=== PATIENT | male | born 1970 | race Caucasian/White ===

== ENCOUNTER → 2017-02-20 | Outpatient (CLI) | payer BC ==
[~2017-02-20] MED LIST: GABAPENTIN600 MG PO; JARDIANCE PO; LEXAPRO10 MG PO; LISINOPRIL10 MG PO; METFORMIN HCL1000 MG PO; TRULICITY; XARELTO20 MG PO
== END ==
LOC: WCC 10:53
PROVIDERS: ATTEND Internal Medicine Infectious Disease
DX: T86.821 Skin graft (allograft) (autograft) failure (principal); Y83.5 Amputation of limb(s) as the cause of abnormal reaction of the patient, or of later complication, without mention of misadventure at the time of the procedure; E11.621 Type 2 diabetes mellitus with foot ulcer; L97.416 Non-pressure chronic ulcer of right heel and midfoot with bone involvement without evidence of necrosis; B95.2 Enterococcus as the cause of diseases classified elsewhere; B96.5 Pseudomonas (aeruginosa) (mallei) (pseudomallei) as the cause of diseases classified elsewhere; Z01.810 Encounter for preprocedural cardiovascular examination; Z01.811 Encounter for preprocedural respiratory examination; I10 Essential (primary) hypertension

== ENCOUNTER → 2017-03-26 | Outpatient (CLI) | payer BC | LOC: WCC 09:56 | PROVIDERS: ATTEND Internal Medicine Infectious Disease | DX: T86.821 Skin graft (allograft) (autograft) failure (principal); Y83.5 Amputation of limb(s) as the cause of abnormal reaction of the patient, or of later complication, without mention of misadventure at the time of the procedure; E11.621 Type 2 diabetes mellitus with foot ulcer; L97.416 Non-pressure chronic ulcer of right heel and midfoot with bone involvement without evidence of necrosis; B95.2 Enterococcus as the cause of diseases classified elsewhere; B96.5 Pseudomonas (aeruginosa) (mallei) (pseudomallei) as the cause of diseases classified elsewhere; I10 Essential (primary) hypertension; Z01.810 Encounter for preprocedural cardiovascular examination; Z01.811 Encounter for preprocedural respiratory examination ==

== ENCOUNTER → 2017-03-27 | Outpatient (CLI) | payer BC | LOC: WCC 11:58 | PROVIDERS: ATTEND Internal Medicine Infectious Disease | DX: T86.821 Skin graft (allograft) (autograft) failure (principal); Y83.5 Amputation of limb(s) as the cause of abnormal reaction of the patient, or of later complication, without mention of misadventure at the time of the procedure; E11.621 Type 2 diabetes mellitus with foot ulcer; B92 Sequelae of leprosy; B96.5 Pseudomonas (aeruginosa) (mallei) (pseudomallei) as the cause of diseases classified elsewhere; I10 Essential (primary) hypertension; Z01.810 Encounter for preprocedural cardiovascular examination; Z01.811 Encounter for preprocedural respiratory examination; L97.516 Non-pressure chronic ulcer of other part of right foot with bone involvement without evidence of necrosis ==

== ENCOUNTER → 2017-04-01 | Outpatient (CLI) | payer BC | LOC: WCC 08:17 | PROVIDERS: ATTEND Internal Medicine Infectious Disease | DX: T86.821 Skin graft (allograft) (autograft) failure (principal); Y83.5 Amputation of limb(s) as the cause of abnormal reaction of the patient, or of later complication, without mention of misadventure at the time of the procedure; E11.621 Type 2 diabetes mellitus with foot ulcer; B95.2 Enterococcus as the cause of diseases classified elsewhere; B96.5 Pseudomonas (aeruginosa) (mallei) (pseudomallei) as the cause of diseases classified elsewhere; I10 Essential (primary) hypertension; Z01.810 Encounter for preprocedural cardiovascular examination; Z01.811 Encounter for preprocedural respiratory examination; L97.416 Non-pressure chronic ulcer of right heel and midfoot with bone involvement without evidence of necrosis | CPT/HCPCS: 36415; 82948; G0277 ==

== ENCOUNTER → 2017-04-02 | Outpatient (CLI) | payer BC | LOC: WCC 09:53 | PROVIDERS: ATTEND Internal Medicine Infectious Disease | DX: T86.821 Skin graft (allograft) (autograft) failure (principal); E11.621 Type 2 diabetes mellitus with foot ulcer; Y83.5 Amputation of limb(s) as the cause of abnormal reaction of the patient, or of later complication, without mention of misadventure at the time of the procedure; I10 Essential (primary) hypertension; Z01.810 Encounter for preprocedural cardiovascular examination; Z01.811 Encounter for preprocedural respiratory examination; L97.416 Non-pressure chronic ulcer of right heel and midfoot with bone involvement without evidence of necrosis ==

== ENCOUNTER → 2017-04-09 | Outpatient (CLI) | payer BC | LOC: WCC 10:05 | PROVIDERS: ATTEND Family Medicine Adult Medicine | DX: T86.821 Skin graft (allograft) (autograft) failure (principal); Y83.5 Amputation of limb(s) as the cause of abnormal reaction of the patient, or of later complication, without mention of misadventure at the time of the procedure; E11.621 Type 2 diabetes mellitus with foot ulcer; I10 Essential (primary) hypertension; Z01.810 Encounter for preprocedural cardiovascular examination; Z01.811 Encounter for preprocedural respiratory examination ==

== ENCOUNTER → 2017-04-11 | Outpatient (CLI) | payer BC | LOC: WCC 10:04 | PROVIDERS: ATTEND Internal Medicine Infectious Disease | DX: T86.821 Skin graft (allograft) (autograft) failure (principal); Y83.5 Amputation of limb(s) as the cause of abnormal reaction of the patient, or of later complication, without mention of misadventure at the time of the procedure; E11.621 Type 2 diabetes mellitus with foot ulcer; I10 Essential (primary) hypertension; Z01.810 Encounter for preprocedural cardiovascular examination; Z01.811 Encounter for preprocedural respiratory examination ==

== ENCOUNTER → 2017-04-16 | Outpatient (CLI) | payer BC | LOC: WCC 12:00 | PROVIDERS: ATTEND Internal Medicine Infectious Disease | DX: T86.821 Skin graft (allograft) (autograft) failure (principal); Y83.5 Amputation of limb(s) as the cause of abnormal reaction of the patient, or of later complication, without mention of misadventure at the time of the procedure; E11.621 Type 2 diabetes mellitus with foot ulcer; I10 Essential (primary) hypertension; Z01.810 Encounter for preprocedural cardiovascular examination; Z01.811 Encounter for preprocedural respiratory examination ==

== ENCOUNTER → 2017-04-19 | Outpatient (CLI) | payer BC | LOC: WCC 08:10 | PROVIDERS: ATTEND Internal Medicine Infectious Disease | DX: T86.821 Skin graft (allograft) (autograft) failure (principal); Y83.5 Amputation of limb(s) as the cause of abnormal reaction of the patient, or of later complication, without mention of misadventure at the time of the procedure; L03.115 Cellulitis of right lower limb; B96.89 Other specified bacterial agents as the cause of diseases classified elsewhere; I10 Essential (primary) hypertension; Z01.810 Encounter for preprocedural cardiovascular examination; Z01.811 Encounter for preprocedural respiratory examination ==

== ENCOUNTER → 2017-04-25 | Outpatient (CLI) | payer BC ==
--- NOTE | 2017-04-25 09:55 | Diagnostic Imaging Report ---
PROCEDURE: CHEST XRAY LINE PLACEMENT COMPARISON: 03/09/2017. INDICATIONS: PICC LINE PLACEMENT FINDINGS: Tip of left upper extremity PICC projects over the expected region of the low superior vena cava. Lungs remain clear without consolidation, pleural effusion, or pneumothorax. Stable cardiac mediastinal contour. No acute osseous abnormality. CONCLUSION: Left upper extremity PICC, positioned as above. Clear lungs. Dictated by: Pedro Lau M.D. on 04/25/2017 at 10:03 Electronically approved by: Pedro Lau M.D. on 04/25/2017 at 10:03
== END ==
LOC: DX 08:49
PROVIDERS: ATTEND Internal Medicine Infectious Disease
DX: L03.115 Cellulitis of right lower limb (principal)
CPT/HCPCS: 36569; 71010

== ENCOUNTER → 2017-05-03 | Outpatient (CLI) | payer BC | LOC: WCC 09:01 | PROVIDERS: ATTEND Internal Medicine Infectious Disease | DX: T86.821 Skin graft (allograft) (autograft) failure (principal); Y83.5 Amputation of limb(s) as the cause of abnormal reaction of the patient, or of later complication, without mention of misadventure at the time of the procedure; E11.621 Type 2 diabetes mellitus with foot ulcer; M86.171 Other acute osteomyelitis, right ankle and foot; M86.671 Other chronic osteomyelitis, right ankle and foot; L97.514 Non-pressure chronic ulcer of other part of right foot with necrosis of bone; L97.519 Non-pressure chronic ulcer of other part of right foot with unspecified severity; L03.115 Cellulitis of right lower limb; B96.5 Pseudomonas (aeruginosa) (mallei) (pseudomallei) as the cause of diseases classified elsewhere; B95.2 Enterococcus as the cause of diseases classified elsewhere; B96.89 Other specified bacterial agents as the cause of diseases classified elsewhere; I10 Essential (primary) hypertension; Z01.810 Encounter for preprocedural cardiovascular examination; Z01.811 Encounter for preprocedural respiratory examination; L97.416 Non-pressure chronic ulcer of right heel and midfoot with bone involvement without evidence of necrosis ==

== ENCOUNTER → 2017-05-09 | Outpatient (CLI) | payer BC ==
[~2017-05-09] MED LIST changes: +GADOBENATE DIMEGLUMINE 1 ML IV ONE
== END ==
LOC: WCC 11:52
PROVIDERS: ATTEND Podiatrist Foot & Ankle Surgery
DX: T86.821 Skin graft (allograft) (autograft) failure (principal); Y83.5 Amputation of limb(s) as the cause of abnormal reaction of the patient, or of later complication, without mention of misadventure at the time of the procedure; E11.621 Type 2 diabetes mellitus with foot ulcer; M86.171 Other acute osteomyelitis, right ankle and foot; M86.671 Other chronic osteomyelitis, right ankle and foot; L97.514 Non-pressure chronic ulcer of other part of right foot with necrosis of bone; L97.519 Non-pressure chronic ulcer of other part of right foot with unspecified severity; B96.5 Pseudomonas (aeruginosa) (mallei) (pseudomallei) as the cause of diseases classified elsewhere; B95.2 Enterococcus as the cause of diseases classified elsewhere; I10 Essential (primary) hypertension; Z01.810 Encounter for preprocedural cardiovascular examination; Z01.811 Encounter for preprocedural respiratory examination; L97.416 Non-pressure chronic ulcer of right heel and midfoot with bone involvement without evidence of necrosis

== ENCOUNTER → 2017-05-14 | Outpatient (CLI) | payer BC ==
[2017-05-13 14:54] LABS: BLOOD UREA NITROGEN 15 mg/dL (7-26); BUN/CREATININE RATIO 14 (6-25); CREATININE, SERUM 1.06 mg/dL (0.72-1.25); EST GLOMERULAR FILTRATION RATE > 60 ML/MIN (60-)
[~2017-05-14] MED LIST changes: -GADOBENATE DIMEGLUMINE 1 ML IV ONE
--- NOTE | 2017-05-14 11:07 | Diagnostic Imaging Report ---
TECHNIQUE: Magnetic resonance imaging of the right foot and ankle was performed without and with injected contrast. 20 mL of MultiHance injected. COMPARISON: None available. HISTORY: History of diabetes, foot ulceration. FINDINGS: Prior transmetatarsal amputation. Lateral and forefoot soft tissue ulceration with sinus tracts surrounding phlegmon/abscess extending to the lateral forefoot osseous structures. Bone marrow edema and T1 replacement involving the majority of the residual third through fifth metatarsals and to a lesser degree the first metatarsal. Minimal edema of the second metatarsal without T1 replacement. No osteomyelitis of the hindfoot. Mild multifocal degenerative arthrosis of the foot and ankle. IMPRESSION: Osteomyelitis of the residual forefoot involving the first and third through fifth metatarsals. Signed by: Dr. Rafael Carbajal M.D. on 05/14/2017 11:03 AM
== END ==
LOC: MRI 05-13 14:16
PROVIDERS: ATTEND Podiatrist Foot & Ankle Surgery
DX: E11.621 Type 2 diabetes mellitus with foot ulcer (principal); L97.416 Non-pressure chronic ulcer of right heel and midfoot with bone involvement without evidence of necrosis
CPT/HCPCS: 36415; 82565; 84520

== ENCOUNTER → 2017-05-16 | Outpatient (CLI) | payer BC ==
[~2017-05-16] MED LIST changes: +CEFEPIME-D1 GM/50 ML IVP
== END ==
LOC: WCC 12:11
PROVIDERS: ATTEND Podiatrist Foot & Ankle Surgery
DX: T86.821 Skin graft (allograft) (autograft) failure (principal); Y83.5 Amputation of limb(s) as the cause of abnormal reaction of the patient, or of later complication, without mention of misadventure at the time of the procedure; E11.621 Type 2 diabetes mellitus with foot ulcer; L97.514 Non-pressure chronic ulcer of other part of right foot with necrosis of bone; L97.519 Non-pressure chronic ulcer of other part of right foot with unspecified severity; B96.5 Pseudomonas (aeruginosa) (mallei) (pseudomallei) as the cause of diseases classified elsewhere; M86.671 Other chronic osteomyelitis, right ankle and foot; B95.2 Enterococcus as the cause of diseases classified elsewhere; I10 Essential (primary) hypertension; Z01.810 Encounter for preprocedural cardiovascular examination; Z01.811 Encounter for preprocedural respiratory examination; L97.416 Non-pressure chronic ulcer of right heel and midfoot with bone involvement without evidence of necrosis

== ENCOUNTER → 2017-05-30 | Day surgery (SDC) | payer BC ==
[2017-05-29 15:15] LABS: BASOPHILS # (AUTO) 0.1 (0.0-0.1); BASOPHILS % 0.6 % (0.0-1.0); EOSINOPHILS # (AUTO) 0.2 (0.0-0.4); EOSINOPHILS % 1.9 % (0.0-6.0); HEMOGLOBIN 16.6 g/dL (14.0-18.0); LYMPHOCYTES # (AUTO) 2.2 (1.0-3.2); LYMPHOCYTES % 20.5 % (18.0-39.1); MEAN CORPUSCULAR HEMOGLOBIN 30.6 pg (28-32); MEAN CORPUSCULAR HGB CONC 33.2 g/dL (31-35); MEAN CORPUSCULAR VOLUME 92.1 fL (81-99); MONOCYTES # (AUTO) 0.7 (0.2-0.8); NEUTROPHILS # (AUTO) 7.7 (2.1-6.9); NEUTROPHILS % 70.8 % (38.7-80.0); PLATELET COUNT 218 x10e3/uL (140-360); RED BLOOD COUNT 5.43 x10e6/uL (4.3-5.7); RED CELL DISTRIBUTION WIDTH 13.5 % (11.7-14.4)
[2017-05-29 15:28] LABS: ANION GAP 17.6 mmol/L (8-16); BLOOD UREA NITROGEN 17 mg/dL (7-26); BUN/CREATININE RATIO 16 (6-25); CALCIUM 9.9 mg/dL (8.4-10.2); CARBON DIOXIDE 25 mmol/L (22-29); CHLORIDE 101 mmol/L (98-107); CREATININE, SERUM 1.04 mg/dL (0.72-1.25); EST GLOMERULAR FILTRATION RATE > 60 ML/MIN (60-); GLUCOSE 234 mg/dL (74-118); POTASSIUM 4.6 mmol/L (3.5-5.1); SODIUM 139 mmol/L (136-145)
[~2017-05-30] MED LIST changes: +ACETAMINOPHEN 1000 MG/100 ML IV ONE; +BUPIVACAINE HCL 0.5% INJ 30 ML VIAL INJ ONE; +FENTANYL CITRATE/PF 100MCG/2 ML INJ ONE; +GLYCOPYRROLATE INJ 1MG/ 5 ML SYR ONE; +INSULIN REGULAR, HUMAN 100 UNIT/1 ML 3ML VIAL ONE; +KETOROLAC TROMETHAMINE 30 MG/ML VIAL ONE; +LIDOCAINE HCL 2% LOCAL INJ 5 ML SDV VIAL INJ ONE; +MIDAZOLAM HCL 2 MG/2 ML VIAL ONE; +ONDANSETRON HCL INJ 2 MG/ML VIAL ONE; +PROPOFOL IV EMULSION 10 MG/ML 20 ML VIAL ONE; +SEVOFLURANE INHAL SOLN 250 ML PEN BTL ONE
--- OUTSIDE RECORDS SUMMARY | 2017-05-30 10:33 | XMS REPORT ---
Author [facility] Address Unknown Phone Unavailable Care Team Providers Care Rubber Goods Tester Name Role Phone TANI MERCEDES Unavailable Unavailable SHUBHAM HARVEY Unavailable Unavailable WAQAR DAVID Unavailable Unavailable RUI COFFEY Unavailable Unavailable Medardo REID Unavailable Unavailable Problems This patient has no known problems. Allergies, Adverse Reactions, Alerts This patient has no known allergies or adverse reactions. Medications This patient has no known medications. Results Test Description Test Time Test Comments Text Results Atomic Results Result Comments MRI FOOT RIGHT WOW [place] [address] Patient Name: DEANNA FLYNN MR #: [id number] : 1970 Age/Sex: 47/M Req #: [id number] Adm Physician: Ordered by: MERCEDES FREIRE DPM Report #: [id number] Location: MRI Room/Bed: Procedure: [id number] MRI/MRI FOOT RIGHT WOW Exam Date: 05/14/17 Exam Time : 0840 REPORT STATUS: Signed TECHNIQUE: Magnetic resonance imaging of the right foot and ankle was performed without and with injected contrast. 20 mL of MultiHance injected. COMPARISON: None available. HISTORY: History of diabetes, foot ulceration. FINDINGS: Prior transmetatarsal amputation. Lateral and forefoot soft tissue ulceration with sinus tracts surrounding phlegmon/abscess extending to the lateral forefoot osseous structures. Bone marrow edema and T1 replacement involving the majority of the residual third through fifth metatarsals and to a lesser degree the first metatarsal. Minimal edema of the second metatarsal without T1 replacement. No osteomyelitis of the hindfoot. Mild multifocal degenerative arthrosis of the foot and ankle. IMPRESSION: Osteomyelitis of the residual forefoot involving the first and third through fifth metatarsals. Signed by: Dr. Abdiel Blevins M.D. on 05/14/2017 11:03 AM Dictated By: ABDIEL BLEVINS MD 02 Transcribed By: COLTON on 05/14/171102 COPY TO: MERCEDES FREIRE DPM MRI ANKLE RIGHT WOW [place] [address] Patient Name: DEANNA FLYNN MR #: [id number] : 1970 Age/Sex: 47/M Req #: [id number] Adm Physician: Ordered by: MERCEDES FREIRE DPM Report #: [id number] Location: MRI Room/Bed: Procedure: [id number] MRI/MRI ANKLE RIGHT WOW Exam Date: 05/14/17 Exam Time: 0840 REPORT STATUS: Signed TECHNIQUE: Magnetic resonance imaging of the right foot and ankle was performed without and with injected contrast. 20 mL of MultiHance injected. COMPARISON: None available. HISTORY: History of diabetes, foot ulceration. FINDINGS: Prior transmetatarsal amputation. Lateral and forefoot soft tissue ulceration with sinus tracts surrounding phlegmon/abscess extending to the lateral forefoot osseous structures. Bone marrow edema and T1 replacement involving the majority of the residual third through fifth metatarsals and to a lesser degree the first metatarsal. Minimal edema of the second metatarsal without T1 replacement. No osteomyelitis of the hindfoot. Mild multifocal degenerative arthrosis of the foot and ankle. IMPRESSION: Osteomyelitis of the residual forefoot involving the first and third through fifth metatarsals. Signed by: Dr. Abdiel Blevins M.D. on 05/14/2017 11:03 AM Dictated By: ABDIEL BLEVINS MD 110 Transcribed By: COLTON on 05/14/17 110 COPY TO: MERCEDES FREIRE DPCorona CHEST XRAY LINE PLACEMENT [place] [address] Patient Name: DEANNA FLYNN MR #: [id number] : 1970 Age/Sex: 47/M Req #: [id number] Adm Physician: Ordered by: SHUBHAM HARVEY MD Report #: [id number] Location: DX Room/Bed: Procedure: [id number] 0027 DX/CHEST XRAY LINE PLACEMENT Exam Date: Exam Time: REPORT STATUS: Signed PROCEDURE: CHEST XRAY LINE PLACEMENT COMPARISON: 03/09/2017. INDICATIONS: PICC LINE PLACEMENT FINDINGS: Tip of left upper extremity PICC projects over the expected region of the low superior vena cava. Lungs remain clear without consolidation, pleural effusion, or pneumothorax. Stable cardiac mediastinal contour. No acute osseous abnormality. CONCLUSION: Left upper extremity PICC, positioned as above. Clear lungs. Dictated by: Flora Lau M.D. on 04/25/2017 at 10:03 Electronically approved by: Flora Lau M.D. on 07/2017 at 10:03 Dictated By: FLORA LAU MD 100 Transcribed By: GANGA on 04/25/17 100 COPY TO: SHUBHAM HARVEY MD CHEST XRAY LINE PLACEMENT [place] [id number] [place] [address] Patient Name: DEANNA FLYNN MR #: [id number] : 1970 Age/Sex: 46/M Req #: [id number] Adm Physician: Ordered by: WAQAR DAVID MD Report # : [id number] Location: ER Room/Bed: Procedure: [id number] DX/CHEST XRAY LINE PLACEMENT Exam Date: 03/09/17 Exam Time: 1939 REPORT STATUS: Signed CHEST XRAY LINE PLACEMENT, 7:32 PM Technique: CHEST XRAY LINE PLACEMENT Comparison: 2016 Clinical history: PICC line placement adjustment Findings: See Impression Impression: 1. Lines/Tubes: Right PICC line terminates over the distal SVC. 2. Otherwise stable chest without acute abnormality. Signed by: Dr Jeremie Perales MD on 03/09/2017 8:31 PM Dictated By: JEREMIE PERALES MD 30 Transcribed By: COLTON on 03/09/172030 COPY TO: WAQAR DAVID MD CHEST SINGLE (PORTABLE) [place] [address] Patient Name: DEANNA FLYNN MR #: [id number] : 1970 Age/Sex: 46/M Req #: [id number] Adm Physician: Ordered by: WAQAR DAVID MD Report # : [id number] Location: ER Room/Bed: Procedure: [id number] [id number] DX/CHEST SINGLE (PORTABLE) Exam Date: 03/09/17 Exam Time: 1555 REPORT STATUS: Signed EXAMINATION: Chest, CHEST SINGLE (PORTABLE) INDICATION: Chest pain COMPARISON: Portable chest 03/07/2017 FINDINGS: LINES: Left peripherally inserted central venous catheter with tip projecting over the expected region of the superior vena cava. Heart: Normal cardiac silhouette. Vascular : The pulmonary vasculature is within normal limits. Mediastinum: No mediastinal, hilar, or axillary mass or lymphadenopathy. Lungs: No parenchymal mass. No focal consolidation. Pleura: No pleural effusion. No pneumothorax. Bones: No acute osseous abnormality. Degenerative changes of the thoracic spine. Soft tissues: Normal. Impression: No acute radiographic abnormality. Signed by: Dr. Khris Saleh M.D. on 4:06 PM Dictated By: KHRIS SALEH MD 05 Transcribed By: COLTON on 03/09/171605 COPY TO: WAQAR DAVID MD CHEST XRAY LINE PLACEMENT [place] [address] Patient Name: DEANNA FLYNN MR #: [id number] : 1970 Age/Sex: 46/M Req #: [id number] Adm Physician: Ordered by: SHUBHAM HARVEY MD Report #: [id number] Location: DX Room/Bed: Procedure: [id number] 0045 DX/CHEST XRAY LINE PLACEMENT Exam Date: 03/07/17 Exam Time: 1455 REPORT STATUS: Signed PROCEDURE: A single AP view of the chest. COMPARISON: [facility], DX, CHEST 2 VIEWS, 01/11, 11:44. INDICATIONS: CHEST X RAY FOR PICC LINE PLACEMENT FINDINGS: See impression. IMPRESSION: 1. left-sided PICC line has distal tip projecting in the mid to distal SVC. 2. Lungs are grossly clear. Cardiac mediastinal silhouette is unremarkable. Esdras Mcgraw M.D. Dictated by: Esdras Mcgraw M.D. on 03/07/2017 at 15:42 Electronically approved by: Esdras Mcgraw M.D. on 2016 at 15:42 Dictated By: ESDRAS MCGRAW MD 41 Transcribed By: GANGA on 154 COPY TO: SHUBHAM HARVEY MD CHEST 2 VIEWS [place] [address] Patient Name: DEANNA FLYNN MR # : [id number] : 1970 Age/Sex: 46/M Req #: [id number] Adm Physician: Ordered by: SHUBHAM HARVEY MD Report #: [id number] Location: [facility] Room/Bed: Procedure: [id number] DX/ CHEST 2 VIEWS Exam Date: 01/11/17 Exam Time: 1145 REPORT STATUS: Signed PROCEDURE: CHEST 2 VIEWS COMPARISON: Chest x-ray, 01/05/17. INDICATIONS: PRE-PROCEDURE RESPIRATORY EXAM FINDINGS: Lines and tubes: Stable appearance of left PICC extending to the mid SVC. Heart size normal. No focal pulmonary opacity, pleural effusion or pneumothorax. Upper abdomen unremarkable with no free air. No acute bony abnormality. CONCLUSION: No evidence for acute disease. Dictated by: Waqar Hogue M.D. on 01/11/2017 at 12:51 Electronically approved by: Waqar Hogue M.D. on 01/11/2017 at 12:51 Dictated By: WAQAR HOGUE MD 1251 Transcribed By: GANGA on 01/11/17 1251 COPY TO : SHUBHAM HARVEY MD CHEST XRAY LINE PLACEMENT [place] [address] Patient Name: DEANNA FLYNN MR #: [id number] : 1970 Age/Sex: 46/M Req #: [id number] Adm Physician: Ordered by: RUI COFFEY MD Report #: [id number] Location: DX Room/Bed: Procedure: 7 DX/CHEST XRAY LINE PLACEMENT Exam Date: Exam Time: REPORT STATUS: Signed EXAMINATION: CHEST XRAY LINE PLACEMENT INDICATION: COMPARISON: None FINDINGS: AP view TUBES and LINES: Left PICC line with tip at mid SVC. LUNGS: Lungs are well inflated. There is mild prominence of the central pulmonary vasculature, consistent with pulmonary venous congestion. PLEURA: No pleural effusion or pneumothorax. HEART AND MEDIASTINUM: The cardiomediastinal silhouette is unremarkable. BONES AND SOFT TISSUES: No acute osseous lesion. Soft tissues are unremarkable. UPPER ABDOMEN: No free air under the diaphragm. IMPRESSION: 1. Left PICC line with tip at mid SVC. 2. Central pulmonary venous congestion. Signed by: Dr. Winston Frazier M.D. on 01/05/2017 10:40 AM Dictated By: WINSTON FRAZIER MD 104 Transcribed By: COLTON on 01/05/17 104 COPY TO: RUI COFFEY MD MRI FOOT RIGHT WO [place] [address] Patient Name: DEANNA FLYNN MR # : [id number] : 1970 Age/Sex: 46/M Req #: [id number] Adm Physician: Ordered by: Medardo REID DPCorona Report #: [id number] Location: MRI Room/Bed: Procedure: [id number] MRI/MRI FOOT RIGHT WO Exam Date: 12/31/16 Exam Time : 1040 REPORT STATUS: Signed TECHNIQUE: Magnetic resonance imaging of the RIGHT foot was performed WITHOUT injected contrast. HISTORY: Right foot COMPARISON: None available. DISCUSSION: Prior amputation first metatarsal with posterior back deformity. Linear oriented granulation tissue through the phalanges and metatarsal head of the second toe. Cortical thickening of the proximal phalanx with surrounding edema. Overall likely postoperative change. Soft tissue ulceration lateral forefoot with bone marrow edema T1 replacement involving the proximal phalanx metatarsal head of the fifth toe MTP joint.. Atrophy of the musculature. IMPRESSION: Osteomyelitis and possible septic arthritis about the metatarsophalangeal joint small toe. Probable postsurgical change to the second toe. Signed by: Dr. Abdiel Blevins M.D. on 12/31/2016 12:10 PM Dictated By: ABDIEL BLEVINS MD 1210 Transcribed By: COLTON on 12/31/16 1210 COPY TO: Medardo REID DPM
--- OUTSIDE RECORDS SUMMARY | 2017-05-30 10:33 | XMS REPORT | Clinical Summary ---
Author Author [facility] Address Unknown Phone Unavailable Care Team Providers Care Production Dispatcher Name Role Phone Tessa Eli MD PCP Allergies Not on File Current Medications Not on file Active Problems Not on file Encounters Date Type Specialty Care Team Description 05/23/2017 Lab Lab Raymond Cotto MD Osteomyelitis, unspecified site, unspecified type (Primary Dx) 05/16/2017 Lab Lab Raymond Cotto MD Osteomyelitis, unspecified site, unspecified type (Primary Dx) 05/09/2017 Lab Raymond Montague MD Osteomyelitis, unspecified site, unspecified type (Primary Dx) 05/01/2017 Lab Lab Raymond Cotto MD Osteomyelitis, unspecified site, unspecified type (Primary Dx) 03/27/2017 Lab Lab Raymond Cotto MD Osteomyelitis, unspecified site, unspecified type (Primary Dx) 03/20/2017 Lab Raymond Montague MD Osteomyelitis, unspecified site, unspecified type (Primary Dx) 03/13/2017 Lab Lab System, Provider Not In, MD Robyn unspecified site, Raymond Cotto MD unspecified type (Primary Dx) 03/08/2017 Lab Lab Raymond Cotto MD Osteomyelitis, unspecified site, unspecified type (Primary Dx) 02/28/2017 Lab Lab Angela Castro, DPM Osteomyelitis, unspecified site, unspecified type (Primary Dx) 02/21/2017 Lab Lab Angela Castro, DPM Osteomyelitis, unspecified site, unspecified type (Primary Dx) 02/13/2017 Lab Lab Angela Castro, DPM Osteomyelitis, unspecified site, unspecified type (Primary Dx) 02/06/2017 Lab Lab Angela Castro, DPM Osteomyelitis, unspecified site, unspecified type (Primary Dx) 01/30/2017 Lab Lab Angela Castro, DPCorona Osteomyelitis, unspecified site, unspecified type (Primary Dx) 01/24/2017 Lab Lab Angela Castro, DPCorona Osteomyelitis, unspecified site, unspecified type (Primary Dx) 01/19/2017 Lab Lab Angela Castro, DPCorona Osteomyelitis, unspecified site, unspecified type (Primary Dx) 05/31/2016 [facility] Clark Pandya MD Encounter after 05/29/2016 Social History Tobacco Use Types Packs/Day Years Used Date Never Assessed Sex Assigned at Date Recorded Not on file Last Filed Vital Signs Not on file Plan of Treatment Health Maintenance Due Date Last Done Comments INFLUENZA VACCINE 11/20/2016 Results * Estimated GFR (05/23/2017 7:45 PM) Only the most recent of 15 results within the time period is included. Component Value Ref Range GFR Non Af Amer >90 mL/min/1.73 m2 GFR Af Amer >90 mL/min/1.73 m2 Comment: Chronic kidney disease: <60 mL/min/1.73m2 Kidney failure: <15 mL/min/1.73m2 The estimated GFR is calculated from the IDMS-traceable Modification of Diet in Renal Disease Equation. The accuracy of the calculation is poor when the creatinine is normal. Calculated values >90 mL/min/1.73m2 are not reported. This equation has not been validated in children (<18 years), women, the elderly (>70 years), or ethnic groups other than Caucasians and Americans. Specimen Performing Laboratory Plasma specimen [facility] DEPARTMENT OF PATHOLOGY AND GENOMIC MEDICINE [address] [place] [address] [place] [address] * Sedimentation rate (05/23/2017 7:45 PM) Only the most recent of 9 results within the time period is included. Component Value Ref Range Sedimentation rate 26 (H) 0 - 10 mm/hr Specimen Performing Laboratory Blood [facility] DEPARTMENT OF PATHOLOGY AND GENOMIC MEDICINE [id number] [place] [address] [place] [address] * CBC with platelet and differential (05/23/2017 7:45 PM) Only the most recent of 15 results within the time period is included. Component Value Ref Range WBC 9.87 4.50 - 11.00 k/uL RBC 4.92 4.40 - 6.00 m/uL HGB 15.0 14.0 - 18.0 g/dL HCT 45.5 41.0 - 51.0 % MCV 92.5 82.0 - 100.0 fL MCH 30.5 27.0 - 34.0 pg MCHC 33.0 31.0 - 37.0 g/dL RDW - SD 46.5 37.0 - 55.0 fL MPV 11.4 8.8 - 13.2 fL Platelet count 212 150 - 400 k/uL Nucleated RBC 0.00 /100 WBC Neutrophils 68.6 39.0 - 69.0 % Lymphocytes 22.9 (L) 25.0 - 45.0 % Monocytes 5.9 0.0 - 10.0 % Eosinophils 1.7 0.0 - 5.0 % Basophils 0.7 0.0 - 1.0 % Immature granulocytes 0.2Comment: "Immature granulocytes" 0.0 - 1.0 % (promyelocytes, myelocytes, metamyelocytes) Specimen Performing Laboratory Blood [facility] PATHOLOGY AND [address] [place] [address] * BUN level (05/23/2017 7:45 PM) Only the most recent of 9 results within the time period is included. Component Value Ref Range BUN 14 6 - 20 mg/dL Specimen Performing Laboratory Plasma specimen [facility] PATH[facility] [address] [place] [address] * Creatinine level (05/23/2017 7:45 PM) Only the most recent of 9 results within the time period is included. Component Value Ref Range Creatinine 0.7 0.7 - 1.2 mg/dL Specimen Performing Laboratory Plasma specimen [facility] AND [address] [place] [address] * Creatine kinase, total (CPK) (03/27/2017 5:30 PM) Only the most recent of 2 results within the time period is included. Component Value Ref Range Creatine kinase 59 39 - 308 U/L Specimen Performing Laboratory Plasma specimen [address] [place] [address] * Comprehensive metabolic panel (03/27/2017 5:30 PM) Only the most recent of 5 results within the time period is included. Component Value Ref Range Sodium 140 135 - 148 mEq/L Potassium 4.5 3.5 - 5.0 mEq/L Chloride 97 (L) 98 - 112 mEq/L CO2 25 24 - 31 mEq/L Anion gap 18 (H) 7 - 15 mEq/L Comment: Starting from July , anion gap calculation no longer incorporates potassium. Please note the change. BUN 18 6 - 20 mg/dL Creatinine 0.8 0.7 - 1.2 mg/dL Glucose 279 (H) 65 - 99 mg/dL Calcium 10.2 8.3 - 10.2 mg/dL Protein 7.6 6.3 - 8.3 g/dL Comment: [place] 4.6-7.0 g/dL 1 week 4.4-7.6 g/dL 7 months-1year 5.1-7.3 g/dL 1-2 years 5.6-7.5 g/dL >3 years 6.0-8.0 g/dL 18-150 6.3-8.3 g/dL Albumin 4.9 3.5 - 5.0 g/dL A/G ratio 1.8 0.7 - 3.8 Alkaline phosphatase 74 40 - 129 U/L AST 14 10 - 50 U/L ALT 18 5 - 50 U/L Total bilirubin 0.4 0.0 - 1.2 mg/dL Specimen Performing Laboratory Plasma specimen [facility] AND [facility] [id number] [place] [address] [place] [address] * Basic metabolic panel (03/20/2017 6:30 PM) Component Value Ref Range Sodium 140 135 - 148 mEq/L Potassium 4.0 3.5 - 5.0 mEq/L Chloride 99 98 - 112 mEq/L CO2 25 24 - 31 mEq/L Anion gap 16 (H) 7 - 15 mEq/L Comment: Starting from July , anion gap calculation no longer incorporates potassium. Please note the change. BUN 14 6 - 20 mg/dL Creatinine 0.9 0.7 - 1.2 mg/dL Glucose 300 (H) 65 - 99 mg/dL Calcium 9.6 8.3 - 10.2 mg/dL Specimen Performing Laboratory Plasma specimen [facility] AND [facility] [address] [place] [address] * C-reactive protein (03/13/2017 7:10 PM) Only the most recent of 3 results within the time period is included. Component Value Ref Range CRP 0.83 (H) 0.00 - 0.50 mg/dL Specimen Performing Laboratory Plasma specimen [facility] DEPARTMENT OF PATHOLOGY AND GENOMIC MEDICINE [address] [place] [address] * Vancomycin level, trough (03/13/2017 7:10 PM) Only the most recent of 8 results within the time period is included. Component Value Ref Range Vancomycin, trough 12.0 10.0 - 20.0 ug/mL Comment: Therapeutic Ranges: Peak 30.0 - 40.0 ug/mL Trough 10.0 - 20.0 ug/mL Specimen Performing Laboratory Serum [facility] DEPARTMENT OF PATHOLOGY AND GENOMIC MEDICINE [address] [place] [address] * Vancomycin level, random (02/20/2017 8:40 PM) Component Value Ref Range Vancomycin, random 14.0 ug/mL Specimen Performing Laboratory Serum [facility] DEPARTMENT OF PATHOLOGY AND GENOMIC MEDICINE [address] [place] [address] after 05/29/2016 Insurance Payer Benefit Subscriber ID Type Phone Address Plan / Group [facility] [id number] PPO CHOICE PPO/GEORGE MURRY Home:
--- NOTE | 2017-06-26 20:42 | Operative Report ---
DATE OF PROCEDURE: May 30, 2017 [employer]ATION TEACHER: None. PREOP DIAGNOSES 1. Right foot osteomyelitis. 2. Right ankle tendo-Achilles contracture. 3. 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 POSTOP DIAGNOSES 1. Right foot osteomyelitis. 2. Right ankle tendo-Achilles contracture. 3. 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 PROCEDURES 1. Right foot revision of transmetatarsal amputation with flap closure. 2. Right tendo-Achilles lengthening. 3. Right foot bone biopsy. 4. Application of splint. 5. Right tibial nerve block. 6. Application of Hemashield graft for soft tissue reinforcement. ANESTHESIA: General. HEMOSTASIS: Thigh tourniquet at 250 mmHg. INJECTABLES: 20 mL of 0.5% Marcaine plain. MATERIALS USED: MiMedx AmnioFix graft injectable 100 mg. PROCEDURE: After informed consent was obtained, patient was brought to the operating room, placed on the operating table in supine position. General anesthesia was obtained. Pneumatic thigh tourniquet was applied to the right thigh. The right lower extremity was then scrubbed and draped in usual aseptic manner. Attention was directed to the posterior aspect of the right ankle, where a stab incision was made approximately 2 cm proximal to the insertion of the Achilles tendon onto calcaneus. The incision was deepened down utilizing sharp and blunt dissection technique. All vital structures were identified and retracted as necessary. All bleeders were identified, ligated, cauterized as necessary. Next, a #11 blade was used to lengthen the posterior medial fibers of the tendo-Achilles. Next, the wound was irrigated with copious amounts of saline. The wound was then coapted utilizing 4-0 nylon. Attention was directed to the area 4 cm proximal to the Achilles tendon insertion onto the calcaneus posteriorly. A stab incision was made utilizing a #15 blade. All vital structures were identified, retracted as necessary. All bleeders were identified, ligated, and cauterized as necessary. Next, attention was directed to the Achilles tendon where utilizing a #15 blade, the anterior lateral fibers of the Achilles tendon were lengthened. The wound was irrigated with copious amounts of saline. Wound was then coapted utilizing 4-0 nylon. Next, a 3rd stab incision was made 6 cm proximal to the insertion of the Achilles tendon onto the calcaneus. The incision was made with a #15 blade. The incision was taken down utilizing sharp dissection technique. All vital structures were identified and retracted as necessary. All bleeders were identified, ligated, and cauterized as necessary. Next, the posterior medial fibers were lengthened of the Achilles tendon utilizing #11 blade. At this time, the foot was dorsiflexed and it was noted that the ankle contracture was reduced. The wound was irrigated with copious amounts of saline. The wound was then coapted utilizing 4-0 nylon. Attention was then directed to the anterior aspect of the right foot, where through the previous incision, incision was made along the distal aspect of the right forefoot. The incision was deepened down utilizing sharp dissection. All vital structures were identified and retracted as necessary. All bleeders were identified, ligated, and cauterized as necessary. Next, the dorsal and the plantar flap were performed. Next, all infected bone were resected and removed from the surgical site utilizing a sagittal saw. At this time, a large abscess was noted along the lateral aspect of the right forefoot. The abscess was completely drained. Deep wound cultures at this time were performed. The bone that was resected was sent to pathology as specimen. Then, the wound was thoroughly irrigated with pulse lavage utilizing 3 L of normal sterile saline with 20 mL of Betadine. Next, flap closure of the revision transmetatarsal amputation site was coapted utilizing 2-0 Vicryl, 4-0 Vicryl, and 2-0 nylon. Next, the AmnioFix graft was injected along the surgical site for soft tissue reinforcement. Next, the surgical site was injected with 10 mL of 0.5% Marcaine plain, followed by a right tibial nerve block consisting of 10 mL of 0.5% Marcaine plain. Next, the right foot was then placed in a dry sterile dressing consisting of Adaptic soaked with Betadine, 4 x 4 soaked with Betadine, ABD pads, 4 x 4's, Kerlix, and an Jim wrap. Next, the posterior splint was applied to the right lower extremity consisting of 4-inch and 6-inch Webril, 4 x 30 splint, and a 4-inch and a 6-inch Jim. Patient tolerated the procedure and anesthesia well. was noted to the right lower extremity. Patient was transferred back to recovery room with vital signs stable and vascular status intact to preop status. Job#: [id number] CQ
== END | disposition home or self-care (01) ==
LOC: OR 10:32
PROVIDERS: ATTEND Podiatrist Foot & Ankle Surgery
DX: M86.171 Other acute osteomyelitis, right ankle and foot (principal); E11.621 Type 2 diabetes mellitus with foot ulcer; L97.519 Non-pressure chronic ulcer of other part of right foot with unspecified severity; M67.01 Short Achilles tendon (acquired), right ankle; L02.611 Cutaneous abscess of right foot; M87.9 Osteonecrosis, unspecified; F41.9 Anxiety disorder, unspecified; G47.33 Obstructive sleep apnea (adult) (pediatric); I10 Essential (primary) hypertension; E11.9 Type 2 diabetes mellitus without complications; F17.200 Nicotine dependence, unspecified, uncomplicated; Z01.810 Encounter for preprocedural cardiovascular examination; Z01.812 Encounter for preprocedural laboratory examination; Z79.02 Long term (current) use of antithrombotics/antiplatelets
CPT/HCPCS: 27606; 28805; 36415 ×2; 80048; 82948; 85025; 87071; 87075; 87186; 87205; 88305; 88311; 93005; J1885; J2001; J2250; J2405; 88307

== ENCOUNTER → 2017-06-14 | Outpatient (CLI) | payer BC ==
[~2017-06-14] MED LIST changes: -ACETAMINOPHEN 1000 MG/100 ML IV ONE; -BUPIVACAINE HCL 0.5% INJ 30 ML VIAL INJ ONE; -FENTANYL CITRATE/PF 100MCG/2 ML INJ ONE; -GLYCOPYRROLATE INJ 1MG/ 5 ML SYR ONE; -INSULIN REGULAR, HUMAN 100 UNIT/1 ML 3ML VIAL ONE; -KETOROLAC TROMETHAMINE 30 MG/ML VIAL ONE; -LIDOCAINE HCL 2% LOCAL INJ 5 ML SDV VIAL INJ ONE; -MIDAZOLAM HCL 2 MG/2 ML VIAL ONE; -ONDANSETRON HCL INJ 2 MG/ML VIAL ONE; -PROPOFOL IV EMULSION 10 MG/ML 20 ML VIAL ONE; -SEVOFLURANE INHAL SOLN 250 ML PEN BTL ONE
== END ==
LOC: WCC 09:35
PROVIDERS: ATTEND Internal Medicine Infectious Disease
DX: T86.821 Skin graft (allograft) (autograft) failure (principal); Y83.5 Amputation of limb(s) as the cause of abnormal reaction of the patient, or of later complication, without mention of misadventure at the time of the procedure; E11.621 Type 2 diabetes mellitus with foot ulcer; M86.671 Other chronic osteomyelitis, right ankle and foot; I70.201 Unspecified atherosclerosis of native arteries of extremities, right leg; I10 Essential (primary) hypertension; B95.2 Enterococcus as the cause of diseases classified elsewhere; Z01.810 Encounter for preprocedural cardiovascular examination; Z01.811 Encounter for preprocedural respiratory examination
CPT/HCPCS: 87071; 87075; 87186; 87205

== ENCOUNTER → 2017-06-21 | Outpatient (CLI) | payer BC | LOC: WCC 09:43 | PROVIDERS: ATTEND Internal Medicine Infectious Disease | DX: T86.821 Skin graft (allograft) (autograft) failure (principal); Y83.5 Amputation of limb(s) as the cause of abnormal reaction of the patient, or of later complication, without mention of misadventure at the time of the procedure; E11.621 Type 2 diabetes mellitus with foot ulcer; I70.201 Unspecified atherosclerosis of native arteries of extremities, right leg; I10 Essential (primary) hypertension; B95.2 Enterococcus as the cause of diseases classified elsewhere; Z01.810 Encounter for preprocedural cardiovascular examination; Z01.811 Encounter for preprocedural respiratory examination ==

== ENCOUNTER → 2017-07-05 | Outpatient (CLI) | payer BC | LOC: EDSTATUS 10:02 → WCC 10:02 | PROVIDERS: ATTEND Internal Medicine Infectious Disease | DX: T86.821 Skin graft (allograft) (autograft) failure (principal); Y83.5 Amputation of limb(s) as the cause of abnormal reaction of the patient, or of later complication, without mention of misadventure at the time of the procedure; E11.621 Type 2 diabetes mellitus with foot ulcer; M86.671 Other chronic osteomyelitis, right ankle and foot; I70.201 Unspecified atherosclerosis of native arteries of extremities, right leg; I10 Essential (primary) hypertension; B95.2 Enterococcus as the cause of diseases classified elsewhere; Z01.810 Encounter for preprocedural cardiovascular examination; Z01.811 Encounter for preprocedural respiratory examination ==

== ENCOUNTER → 2017-12-26 | Day surgery (SDC) | payer BC ==
[~2017-12-26] MED LIST changes: +ACETAMINOPHEN 1000 MG/100 ML 100 ML IV ONE; +BACITRACIN 50,000 UNIT VIAL ONE; +BUPIVACAINE HCL 0.5% 10ML MPF VIAL INJ ONE; +CEFAZOLIN SOD 2 GM/D5W 50ML 50 ML IV ONE; +DEXAMETHASONE SOD PHOS INJ 4 MG/ML VIAL ONE; +FENTANYL CITRATE/PF 100MCG/2 ML INJ ONE; +LIDOCAINE HCL 2% LOCAL INJ 5 ML SDV VIAL INJ ONE; +MIDAZOLAM HCL 2 MG/2 ML VIAL ONE; +ONDANSETRON HCL INJ 2 MG/ML VIAL ONE; +PROPOFOL IV EMULSION 10 MG/ML 20 ML VIAL ONE; +SEVOFLURANE INHAL SOLN 250 ML PEN BTL ONE
[2017-12-26 14:44] VITALS: BP 122/90
--- NOTE | 2018-01-10 14:08 | Operative Report ---
DATE OF PROCEDURE: December 26, 2017 TELECOMMUNICATION TOWER TECHNICIAN: None. PREOPERATIVE DIAGNOSES 1. Left foot 5th metatarsal head prominence with tailor's bunion. 2. Left foot diabetic foot ulceration. POSTOPERATIVE DIAGNOSES 1. Left foot 5th metatarsal head prominence with tailor's bunion. 2. Left foot diabetic foot ulceration. PROCEDURES 1. Left foot 5th metatarsal head resection. 2. Left foot debridement of wound down to the level of the tendon and muscle of all necrotic, nonviable tissue. 3. Use of intraoperative fluoroscopy. 4. Application of left tibial nerve block. HEMOSTASIS: Ankle tourniquet at 250 mmHg. DESCRIPTION OF PROCEDURE: After informed consent was obtained, the patient was brought into the operating room and placed on the operating table in supine position. General anesthesia was obtained. A pneumatic ankle tourniquet was applied to the left ankle. The left lower extremity was scrubbed, prepped, and draped in the usual aseptic manner. Attention was directed to the left foot where a linear incision was made from proximal to distal encompassing the 5th metatarsophalangeal joint. The incision was deepened down utilizing sharp and blunt dissection technique. All vital structures were identified and retracted as necessary. All bleeders were identified, ligated, and cauterized as necessary. Next, capsulotomy was performed. The capsule was reflected both medially and laterally, exposing the head of the 5th metatarsal. Next, the head of the 5th metatarsal was resected and removed from the surgical site utilizing a sagittal saw in a dorsal distal to plantar proximal fashion. The head of the proximal phalanx was resected and removed from the surgical site and sent to pathology as a specimen. The wound was then thoroughly irrigated with copious amounts of normal saline. Next, the wound noted on the plantar aspect of the left foot was debrided full thickness down to the level of the tendon and muscle with a #15 blade of necrotic, nonviable tissue. Next the dorsal incision was coapted utilizing 3-0 Vicryl and 4-0 nylon. Next, the plantar wound was dressed with a dry sterile dressing consisting of iodoform packing, 4 x 4's soaked in Betadine, Kerlix and an Jim wrap. At this time, the pneumatic ankle tourniquet was deflated, and prompt hyperemic response was noted to the digits of the left foot. The neurovascular status to the left lower extremity was returned back to preoperative status. The patient tolerated the procedure and the anesthesia well. The patient was transferred to the recovery room with vital signs stable and neurovascular status intact to preop status. Job#: [id number]
== END | disposition home or self-care (01) ==
LOC: OR 10:27
PROVIDERS: ATTEND Podiatrist Foot & Ankle Surgery
DX: M21.622 Bunionette of left foot (principal); E11.621 Type 2 diabetes mellitus with foot ulcer; L97.523 Non-pressure chronic ulcer of other part of left foot with necrosis of muscle; G57.90 Unspecified mononeuropathy of unspecified lower limb; G56.90 Unspecified mononeuropathy of unspecified upper limb; I10 Essential (primary) hypertension; N20.0 Calculus of kidney; F41.9 Anxiety disorder, unspecified; F17.200 Nicotine dependence, unspecified, uncomplicated; Z79.84 Long term (current) use of oral hypoglycemic drugs; Z79.02 Long term (current) use of antithrombotics/antiplatelets
CPT/HCPCS: 11043; 28288; 36415; 82948; 87071; 87075; 87205; J1100; J2001; J2250; J2405

== ENCOUNTER → 2018-12-11 | Outpatient (CLI) | payer MEDICARE ==
[~2018-12-11] MED LIST changes: -ACETAMINOPHEN 1000 MG/100 ML 100 ML IV ONE; -BACITRACIN 50,000 UNIT VIAL ONE; -BUPIVACAINE HCL 0.5% 10ML MPF VIAL INJ ONE; -CEFAZOLIN SOD 2 GM/D5W 50ML 50 ML IV ONE; -DEXAMETHASONE SOD PHOS INJ 4 MG/ML VIAL ONE; -FENTANYL CITRATE/PF 100MCG/2 ML INJ ONE; -LIDOCAINE HCL 2% LOCAL INJ 5 ML SDV VIAL INJ ONE; -MIDAZOLAM HCL 2 MG/2 ML VIAL ONE; -ONDANSETRON HCL INJ 2 MG/ML VIAL ONE; -PROPOFOL IV EMULSION 10 MG/ML 20 ML VIAL ONE; -SEVOFLURANE INHAL SOLN 250 ML PEN BTL ONE
== END ==
LOC: CARD 09:34
PROVIDERS: ATTEND Podiatrist
DX: E11.621 Type 2 diabetes mellitus with foot ulcer (principal); L97.514 Non-pressure chronic ulcer of other part of right foot with necrosis of bone; B95.2 Enterococcus as the cause of diseases classified elsewhere
CPT/HCPCS: 93922

== ENCOUNTER 2018-12-19 15:33 | Outpatient (RCR) | payer MEDICARE ==
[~2018-12-19 15:33] MED LIST changes: +CADEXOMER IODINE 30 GM TUBE ONE; +LIDOCAINE/PRILOCAINE 2.5-2.5% KIT ONE
== END 2018-12-20 ==
LOC: WCC 15:33
PROVIDERS: ATTEND Podiatrist
DX: E11.621 Type 2 diabetes mellitus with foot ulcer (principal); Y83.5 Amputation of limb(s) as the cause of abnormal reaction of the patient, or of later complication, without mention of misadventure at the time of the procedure; L97.419 Non-pressure chronic ulcer of right heel and midfoot with unspecified severity; I10 Essential (primary) hypertension; I70.203 Unspecified atherosclerosis of native arteries of extremities, bilateral legs; Z01.810 Encounter for preprocedural cardiovascular examination; Z01.811 Encounter for preprocedural respiratory examination
CPT/HCPCS: 87070; 87071; 87075; 87205; 88304

== ENCOUNTER 2019-01-14 13:09 | Outpatient (RCR) | payer MEDICARE ==
[~2019-01-14 13:09] MED LIST changes: -CADEXOMER IODINE 30 GM TUBE ONE; -LIDOCAINE/PRILOCAINE 2.5-2.5% KIT ONE; +MINERAL OIL/PETROLAT/GLYCERI 6OZ BTL ONE
== END 2019-01-19 ==
LOC: WCC 13:09
PROVIDERS: ATTEND Podiatrist
DX: E11.621 Type 2 diabetes mellitus with foot ulcer (principal); Y83.5 Amputation of limb(s) as the cause of abnormal reaction of the patient, or of later complication, without mention of misadventure at the time of the procedure; L97.415 Non-pressure chronic ulcer of right heel and midfoot with muscle involvement without evidence of necrosis; L97.411 Non-pressure chronic ulcer of right heel and midfoot limited to breakdown of skin; I70.203 Unspecified atherosclerosis of native arteries of extremities, bilateral legs; I10 Essential (primary) hypertension; Z01.810 Encounter for preprocedural cardiovascular examination; Z01.811 Encounter for preprocedural respiratory examination

== ENCOUNTER 2019-02-04 13:33 | Outpatient (RCR) | payer MEDICARE ==
[~2019-02-04 13:33] MED LIST changes: +AMMONIUM LACTATE 12% LOTION 225GM BTL ONE; -MINERAL OIL/PETROLAT/GLYCERI 6OZ BTL ONE
== END 2019-02-19 ==
LOC: WCC 13:33
PROVIDERS: ATTEND Podiatrist
DX: E11.621 Type 2 diabetes mellitus with foot ulcer (principal); Y83.5 Amputation of limb(s) as the cause of abnormal reaction of the patient, or of later complication, without mention of misadventure at the time of the procedure; L97.415 Non-pressure chronic ulcer of right heel and midfoot with muscle involvement without evidence of necrosis; I10 Essential (primary) hypertension; I70.203 Unspecified atherosclerosis of native arteries of extremities, bilateral legs; Z01.810 Encounter for preprocedural cardiovascular examination; Z01.811 Encounter for preprocedural respiratory examination